=== PATIENT | female | born 2000 | race Caucasian/White ===

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

== ENCOUNTER 2024-04-21 20:08 | Emergency (ER) | payer OTHER ==
[~2024-04-21] VITALS: Ht 170.2 cm; Wt 55.8 kg
[~2024-04-21 20:08] MED LIST changes: +MUCINEX DM ER1 EACH PO; +PROAIR RESPICL90 MCG; +SINGULAIR10 MG PO; +UCERIS9 MG; +ZYRTEC10 MG PO
[2024-04-21] MEDS ORDERED: KETO10TA2 PO (21:34)
== END 2024-04-21 22:15 | disposition home or self-care (01) ==
LOC: ER 20:10
DX: K42.9 Umbilical hernia without obstruction or gangrene (principal); J45.909 Unspecified asthma, uncomplicated

== ENCOUNTER 2025-03-27 16:23 | Emergency (ER) | payer OTHER ==
[~2025-03-27] VITALS: Ht 172.7 cm; Wt 52.2 kg
[~2025-03-27 16:23] MED LIST changes: +KETO10TA2 PO
[2025-03-27 18:04] LABS: BASO % 0.5 % (0.1-1.2); EOS # 0.14 (0.04-0.54); EOS % 1.5 % (0.7-7.0); LYMPH # 2.55 (1.18-3.74); LYMPH % 28.0 % (19.3-53.1); MEAN PLATELET VOLUME 10.70 fl (9.4-12.4); MONO # 0.62 (0.24-0.82); MONO % 6.8 % (4.7-12.5); NEUT # 5.73 (1.56-6.13); NEUT % 63.1 % (34.0-71.1); RED CELL DISTRIBUTION WIDTH 13.0 % (11.6-14.4)
[2025-03-27 19:00] LABS: URINE APPEARANCE Cloudy; URINE BILIRRUBIN Negative (NEGATIVE); URINE BLOOD Trace; URINE COLOR Yellow; URINE GLUCOSE Negative (NEGATIVE); URINE KETONE Negative (NEGATIVE); URINE LEUKOCYTE Trace; URINE NITRATE Negative; URINE PROTEIN Negative (NEGATIVE); URINE UROBILINOGEN 0.2 E.U./dl
[2025-03-27 19:04] LABS: URINE BACTERIA 1027.1 uL (0.0-1933); URINE EPITHELIAL CELLS 64.4 uL (0.0-38.8); URINE RBC 3.0 uL (0.0-20.8); URINE WBC 32.1 uL (0.0-23.2)
[2025-03-27 19:11] LABS: URINE CAST 0.14 uL (0.0-1.40)
[2025-03-27] MEDS ORDERED: CEFTRIAXONE SODIUM 1,000 MG VIAL IM ONE (20:30)
[2025-03-27] MEDS ORDERED: CEFTRIAXONE SODIUM 1,000 MG VIAL ONE (21:21)
== END 2025-03-27 21:40 | disposition home or self-care (01) ==
LOC: ER 16:23
PROVIDERS: General Practice
DX: R30.0 Dysuria (principal); R35.0 Frequency of micturition; N93.9 Abnormal uterine and vaginal bleeding, unspecified; L29.2 Pruritus vulvae